=== PATIENT | female | born 2000 | race Caucasian/White ===

== ENCOUNTER 2021-03-29 12:33 | Emergency (ER) | payer BC, MEDICAID ==
[2021-03-29 12:46] VITALS: BP 148/93; PULSE 81
--- NOTE | 2021-03-29 13:41 | EDM.PDOC ---
ED HPI GENERAL MEDICAL PROBLEM - General Chief Complaint: Abdominal Pain Stated Complaint: GALLBLADDER IS HURTING Time Seen by Provider: 03/29/21 13:00 Source of Information: Reports: Patient History Limitations: Reports: No Limitations - History of Present Illness INITIAL COMMENTS - FREE TEXT/NARRATIVE: 20-year-old female who has had epigastric and right upper quadrant pain for the past 6 hours, actually improving now but also complains of dark urine for the past couple of days. No fevers or chills, no history of gallbladder problems but a strong family history. Some pain does radiate to her back, nausea but no vomiting. Denies lower abdominal pain. 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 Endocrine/Metabolic History: Reports: None Hematologic History: Reports: None Immunologic History: Reports: None Oncologic (Cancer) History: Reports: None Dermatologic History: Reports: None - Infectious Disease History Infectious Disease History: Reports: Chicken Pox - Past Surgical History Head Surgeries/Procedures: Reports: None GI Surgical History: Reports: EGD Social & Family History - Family History Family Medical History: No Pertinent Family History Cardiac: Reports: Hypertension - Tobacco Use Tobacco Use Status *Q: Current Every Day Tobacco User Years of Tobacco use: 4 Packs/Tins Daily: 0.5 - Caffeine Use Caffeine Use: Reports: None - Recreational Drug Use Recreational Drug Use: No - Living Situation & Occupation Living situation: Reports: Single, with Family Occupation: Student ED ROS GENERAL - Review of Systems Review Of Systems: See Below Constitutional: Reports: Malaise. Denies: Fever, Chills HEENT: Reports: No Symptoms Respiratory: Denies: Shortness of Breath GI/Abdominal: Reports: Abdominal Pain, Nausea. Denies: Vomiting : Reports: Other (Urine is "dark".) Skin: Reports: No Symptoms Neurological: Reports: No Symptoms Psychiatric: Reports: No Symptoms ED EXAM, GI/ABD - Physical Exam Exam: See Below Exam Limited By: No Limitations General Appearance: Alert, No Apparent Distress Eyes: Bilateral: Normal Appearance Head: Atraumatic Respiratory/Chest: No Respiratory Distress, Lungs Clear Cardiovascular: Regular Rate, Rhythm GI/Abdominal Exam: Soft, Tender (Patient is fairly tender to palpation across the upper abdomen, especially right upper quadrant and epigastric area. Equivocal Gilbert sign, no peritoneal irritation or rebound tenderness) Extremities: Normal Inspection. No: Pedal Edema Neurological: Alert, Oriented, No Motor/Sensory Deficits Psychiatric: Normal Affect, Normal Mood Skin Exam: Warm, Dry. No: Jaundice Course - Vital Signs Last Recorded V/S: Last Vital Signs Temp 97.6 F 03/29/21 12:45 Pulse 81 03/29/21 12:45 Resp 16 03/29/21 12:45 BP 148/93 H 03/29/21 12:45 Pulse Ox 100 03/29/21 12:45 - Orders/Labs/Meds Orders: Active Orders 24 hr Category Date Time Status Abdomen Ltd [US] Stat Exams 03/29/21 13:53 Taken Labs: Laboratory Tests 03/29/21 03/29/21 03/29/21 Range/Units 13:25 13:25 15:42 WBC 13.9 H (4.5-11.0) K/uL RBC 5.29 (3.30-5.50) M/uL Hgb 15.9 H (12.0-15.0) g/dL Hct 47.5 (36.0-48.0) % MCV 90 (80-98) fL MCH 30 (27-31) pg MCHC 34 (32-36) % Plt Count 193 (150-400) K/uL Neut % (Auto) 87.2 H (36-66) % Lymph % (Auto) 6.6 L (24-44) % Jerome % (Auto) 6.0 (2-6) % Eos % (Auto) 0.1 L (2-4) % Baso % (Auto) 0.1 (0-1) % Sodium 138 L (140-148) mmol/L Potassium 4.0 (3.6-5.2) mmol/L Chloride 101 (100-108) mmol/L Carbon Dioxide 23 (21-32) mmol/L Anion Gap 18.0 H (5.0-14.0) mmol/L BUN 6 L (7-18) mg/dL Creatinine 0.8 (0.6-1.0) mg/dL Est Cr Clr Drug Dosing 108.17 mL/min Estimated GFR (MDRD) > 60 (>60) Glucose 123 H (74-106) mg/dL Calcium 8.9 (8.5-10.1) mg/dL Total Bilirubin 4.1 H (0.2-1.0) mg/dL AST 160 H (15-37) U/L ALT 357 H (12-78) U/L Alkaline Phosphatase 201 H (46-116) U/L Total Protein 7.5 (6.4-8.2) g/dL Albumin 3.7 (3.4-5.0) g/dL Globulin 3.8 H (2.3-3.5) g/dL Albumin/Globulin Ratio 1.0 L (1.2-2.2) Lipase 57710 H (73-393) U/L SARS CoV-2 RNA Rapid RENETTA Negative Meds: Medications Discontinued Medications Generic Name Dose Route Start Last Admin Trade Name Freq PRN Reason Stop Dose Admin Hydromorphone HCl 0.5 mg 03/29/21 14:53 03/29/21 15:16 Hydromorphone 0.5 Mg/0.5 Ml Syringe IVPUSH 03/29/21 14:54 0.5 mg ONETIME ONE Administration Hydromorphone HCl 0.5 mg 03/29/21 16:35 03/29/21 16:39 Hydromorphone 0.5 Mg/0.5 Ml Syringe IVPUSH 03/29/21 16:36 0.5 mg ONETIME ONE Administration Lactated Ringer's 1,000 mls @ 1,000 mls/hr 03/29/21 15:00 03/29/21 15:20 Ringers, Lactated IV 1,000 mls/hr ASDIRECTED MUNDO Administration - Re-Assessments/Exams Free Text/Narrative Re-Assessment/Exam: 03/29/21 13:41 CBC, CMP and lipase were obtained, bedside ultrasound showed a probable generous gallbladder wall and a few stones in the neck of the gallbladder. 03/29/21 17:05 White count was mildly elevated, bilirubin 4.1, all LFTs are moderately elevated and lipase is significantly elevated at 13,400. Patient was bolused with 1 L of lactated Ringer, given 0.5 mg of IV Dilaudid and transferred to [place] for an MRCP or ERCP was arranged to [facility] in [place]. Departure - Departure Time of Disposition: 16:54 Disposition: DC/Tfer to [facility] 02 Clinical Impression: Abdominal pain Qualifiers: Abdominal location: upper abdomen, unspecified Qualified Code(s): R10.10 - Upper abdominal pain, unspecified Pancreatitis Qualifiers: Chronicity: acute Pancreatitis type: biliary Acute pancreatitis complication: no infection or necrosis Qualified Code(s): K85.10 - Biliary acute pancreatitis without necrosis or infection - Discharge Information Instructions: Acute Pancreatitis, [id number] Referrals: PCP,None [Primary Care Provider] - Forms: ED Department Discharge Care Plan Goals: Patient was transferred to [facility] in [place] for further evaluation by gastroenterology for likely gallstone initiated pancreatitis and hyperbilirubinemia. Sepsis Event Note (ED) - Evaluation Sepsis Screening Result: No Definite Risk - Focused Exam Vital Signs: Vital Signs Temp Pulse Resp BP Pulse Ox 03/29/21 12:45 97.6 F 81 16 148/93 H 100 - My Orders Last 24 Hours: My Active Orders 03/29/21 13:53 Abdomen Ltd [US] Stat - Assessment/Plan Last 24 Hours: My Active Orders 03/29/21 13:53 Abdomen Ltd [US] Stat
[2021-03-29] MEDS ORDERED: HYDROmorphone 0.5 MG/0.5 ML Syringe IVPUSH ONE ×2 (14:53→16:35)
[2021-03-29] MEDS ORDERED: Lactated Ringers 1,000 ML IV SCH (15:00)
--- NOTE | 2021-03-31 09:46 | US ---
Abdomen Ltd CLINICAL HISTORY: Abdominal pain COMPARISON: None. TECHNIQUE: Real-time images were obtained through the right upper quadrant. FINDINGS: The liver is free of mass or biliary dilatation. There is normal hepatic echotexture. The gallbladder contains multiple stones. The largest measures 2.6 cm. Gallbladder wall is 3 mm. The common bile duct measures 5 mm. The pancreas is obscured. The right kidney has a normal appearance. The IVC is normal. IMPRESSION: Cholelithiasis with no biliary dilatation Pancreas is obscured
== END 2021-03-29 16:45 ==
LOC: JP.ED 12:33
DX: K85.10 Biliary acute pancreatitis without necrosis or infection (principal); K21.9 Gastro-esophageal reflux disease without esophagitis; Z79.899 Other long term (current) drug therapy; Z72.0 Tobacco use; Z20.822 Contact with and (suspected) exposure to COVID-19
CPT/HCPCS: 36415; 76705; 80053; 83690; 85025; 87635; 96374; 96376; 99285; J1170; J7120; U0002